=== PATIENT | male | born 1955 | race Caucasian/White ===

== ENCOUNTER 2016-11-17 13:06 | Emergency (ER) | payer OTHER ==
[~2016-11-17] VITALS: Ht 177.8 cm; Wt 103.5 kg
[2016-11-17 13:35] LABS: HEMATOCRIT 51.7 % (38.0-50.0); MCH 30.6 PG (29.0-34.0); MCHC 33.7 G/DL (30.0-36.0); MCV 90.9 FL (86-99); MEAN PLAT.VOLUME 10.3 uM^3 (9.0-12.4); PLATELET COUNT 202 K/uL (156-360); RBC DIS.WIDTH-CV 12.7 % (11.8-14.6); RBC DIS.WIDTH-SD 43.1 % (39-53); RED BLOOD COUNT 5.69 M/uL (4.00-5.50); WHITE BLOOD COUNT 10.2 K/uL (4.1-10.2)
[2016-11-17 13:45] LABS: CHLORIDE 104 mEq/L (99-109); SODIUM 140 mEq/L (136-147)
[2016-11-17 13:47] LABS: GLUCOSE 113 mg/dL (70-99)
[2016-11-17 13:49] LABS: ANION GAP 12 MEQ/L (2-14)
[2016-11-17 13:51] LABS: GFR ESTIMATE (CALCULATED) > 59 mL/min/
[2016-11-17 13:52] LABS: UREA NITROGEN (BUN) 9 mg/dL (9-23)
[2016-11-17 13:57] LABS: TROP-I INTERPRETATION NEGATIVE; TROPONIN-I < 0.01 ng/mL (0.0-0.30)
[2016-11-17 14:27] VITALS: BP 141/72
== END 2016-11-17 14:28 ==
LOC: EME 13:06
PROVIDERS: Emergency Medicine
DX: E86.0 Dehydration (principal); R55 Syncope and collapse; R51 Headache
CPT/HCPCS: 80048; 84484; 85027; 93005; 99281; 99284; J7030